=== PATIENT | male | born 1970 | race Caucasian/White ===

== ENCOUNTER 2017-07-14 09:55 | Emergency (ER) | payer OTHER ==
--- NOTE | ~2017-07-14 | ER ---
PATIENT'S NAME: CHRISTAL GRANT [facility] AGE: 47 Y [address] ROOM: [place] [id number] LOCATION: ED ADMIT DATE: 07/14/2017 ER/Outpatient Report DISCHARGE DATE: 07/14/2017 FAMILY PHYSICIAN: Jacob Ramirez PA-C ATTENDING PHYSICIAN: Truong Hall CHIEF COMPLAINT: Heel pain. HISTORY OF PRESENT ILLNESS: Mr. Grant notes that he has had heel pain for the last 2 days. It is worse yesterday morning, got better throughout the day yesterday, and then it is worse again this morning. He states the pain improved with some naproxen sodium. He was also on his feet most of the day yesterday at the [facility]. He states that typically, he wears cowboy boots with elevation to the heel but yesterday was wearing flat shoes, and he is doing so again today. He denies anything like this before. He has had no significant injuries. The pain is at the back of the heel and slightly underneath on the medial aspects. PAST MEDICAL HISTORY: Documented on the record and reviewed by me. SOCIAL HISTORY: Documented on the record and reviewed by me. MEDICATIONS: Documented on the record and reviewed by me. ALLERGIES: DOCUMENTED ON THE RECORD AND REVIEWED BY ME. REVIEW OF SYSTEMS: All systems reviewed and negative except as noted in the HPI. PHYSICAL EXAMINATION: VITAL SIGNS: Blood pressure is 146/87, pulse 75, respiratory rate 16, temperature 97.4, SpO2 is 93% on room air. Pain is 4 to 5 out of 10. GENERAL: An age-appropriate male, recumbent on the exam table, in no apparent pain or distress. Smiling and happy. NEUROLOGIC: Awake and alert. GCS 15. No focal deficits. No asymmetry. HEENT: Normocephalic, atraumatic. Eyes are PERRL. Oropharynx is clear. NECK: Supple. Trachea is midline. CHEST: Heart is regular rate and rhythm. LUNGS: Even unlabored respirations. ABDOMEN: Appears benign. PATIENT'S NAME: CHRISTAL GRANT [facility] AGE: 47 Y [address] ROOM: [place], [place] [address] LOCATION: [facility] ADMIT DATE: 07/14/2017 ER/Outpatient Report DISCHARGE DATE: 07/14/2017 FAMILY PHYSICIAN: Jacob Ramirez PA-C ATTENDING PHYSICIAN: Truong Hall BACK: Grossly normal. EXTREMITIES: The right lower extremity was evaluated in detail. There is tenderness at the insertion of the Achilles tendon on the calcaneus. There is no tenderness around it. No palpable defects. The plantar fascia is minimally uncomfortable with palpation at the calcaneus. No masses. No pain or tenderness at the joint line. No redness or erythema. LABORATORY DATA AND X-RAYS: None. IMPRESSION: Achilles tendinitis versus tendinopathy with enthesopathy without clear plantar fasciitis. EMERGENCY DEPARTMENT COURSE: The patient was seen and evaluated as above. Based on his symptoms, I do not think this is infectious or traumatic. I believe it is an overuse injury, most consistent with Achilles tendinitis. No evidence of infection or inflammation. No joint involvement on exam. We will have the patient continue with his NSAIDs and use a heel lift or wear his boots to offload the Achilles tendon. Have him follow up with his primary care provider as needed. Return immediately if worsening. All questions were answered, and the patient was discharged in good condition. MD KEVIN GALVAN/wilfred /[id number] d: 07/14/172008 t: 07/23/17 [facility], OUTPATIENT REPORT
== END 2017-07-14 10:22 | disposition disaster alternative care site (69) ==
LOC: GMED 09:55
DX: M77.51 Other enthesopathy of right foot and ankle (principal); F17.220 Nicotine dependence, chewing tobacco, uncomplicated; Z88.2 Allergy status to sulfonamides